=== PATIENT | female | born 1980 | race Caucasian/White ===

== ENCOUNTER 2017-05-01 06:44 | Day surgery (SDC) | payer BC ==
[2017-04-29 14:34] VITALS: BMI 21.6
[~2017-05-01 06:44] MED LIST: BUPIVACAINE HCL/PF 0.5% (5MG/ML) 10 ML VIAL IJ ONE
[2017-05-01] MEDS ORDERED: LIDOCAINE HCL/PF 2% SDV 5ML VIAL ONE (07:17)
[2017-05-01] MEDS ORDERED: PROPOFOL 20 ML ONE ×2 (07:17→11:10)
[2017-05-01] MEDS ORDERED: DEXAMETHASONE SOD PHOSPHATE 4 MG/1 ML VIAL ONE (07:17)
[2017-05-01] MEDS ORDERED: SUCCINYLCHOLINE CHLORIDE 200 MG/10 ML VIAL ONE (07:17)
[2017-05-01] MEDS ORDERED: ceFAZolin SODIUM 1 GM VIAL ONE (07:17)
[2017-05-01] MEDS ORDERED: ONDANSETRON 4 MG/2 ML VIAL ONE (07:17)
[2017-05-01] MEDS ORDERED: MIDAZOLAM HCL 2 MG/2 ML SINGLE DOSE VIAL ONE (07:20)
[2017-05-01] MEDS ORDERED: ROCURONIUM BROMIDE 50 MG/5 ML VIAL ONE ×2 (08:31→09:27)
[2017-05-01] MEDS ORDERED: ceFAZolin SODIUM 1 GM VIAL IVPB ONE (08:38)
[2017-05-01] MEDS ORDERED: BUPIVACAINE HCL/PF 0.5% (5MG/ML) 10 ML VIAL ONE (08:56)
[2017-05-01] MEDS ORDERED: ONDANSETRON 4 MG/2 ML VIAL IVPUSH PRN (08:59)
[2017-05-01] MEDS ORDERED: ACETAMINOPHEN 1000 MG/100 ML VIAL (NON FORMULARY) IVPB PRN (09:00)
[2017-05-01] MEDS ORDERED: LACTATED RINGERS SOLUTION 1,000 ML IV SCH (09:00)
[2017-05-01] MEDS ORDERED: HYDROmorphone HCL/PF 1 MG/ML VIAL (FOR PYXIS CHARGING ONLY) ONE ×4 (09:00→09:47)
--- NOTE | 2017-05-01 11:59 | OP ---
Operative Note - Note: Operative Date: 05/01/17 Pre-Operative Diagnosis: Left Breast Deformity after Lumpectomy & Radiation for Breast Cancer Operation: Left Breast Reconstruction for Lumpectomy Defect, Right. Breast Mastopexy for Symmetry Post-Operative Diagnosis: Same as Pre-op Surgeon: Jonathan Paulino Anesthesia: General Estimated Blood Loss (mls): 100 Operative Report Dictated: Yes
[2017-05-01] MEDS ORDERED: oxyCODONE HCL 5 MG TABLET PO PRN (12:00)
[2017-05-01 12:36] VITALS: TEMP 98.5
--- NOTE | 2017-05-01 12:51 | OP ---
DATE OF OPERATION: 05/01/2017 PREOPERATIVE DIAGNOSIS: Left breast deformity after lumpectomy and radiation for breast cancer. POSTOPERATIVE DIAGNOSIS: Left breast deformity after lumpectomy and radiation for breast cancer. PROCEDURE PERFORMED: Left breast reconstruction for lumpectomy defect and right breast mastopexy for symmetry. SURGEON: Jonathan Dorantes MD ANESTHESIA: General via endotracheal tube. BRIEF HISTORY: The patient is a 36-year-old female who is approximately 1 year status post left breast lumpectomy in the upper outer quadrant (2 o'clock position), which was followed by radiation. The patient then presents with a hollow defect in the area of her lumpectomy, and a modest asymmetry in both breasts after radiation. The patient now presents for reconstruction of the left breast to correct the lumpectomy deformity and a contralateral symmetry procedure. DESCRIPTION OF PROCEDURE: The patient was on the operating table in supine position, and general anesthesia was administered by the anesthesiologist. The area of the chest was prepped and draped in the usual sterile fashion. The patient had been seen one day prior to surgery and was photographed and marked in the standing position. These markings were now used as a guide for surgery. The left breast was approached first, and using the previously placed markings, a Stuart pattern incision was placed. Lateral flaps were developed and kept thick to ensure vascularity at the tip. The lumpectomy region was dissected, and a large cyst was noted representing probable seroma in the area of the previous surgery. This area was completely excised including the rivera of the cystic cavity and sent as separate specimen. The central area was deepithelialized, and dissection continued superiorly, allowing upward rotation of the nipple areolar complex. Hemostasis was achieved with electrocautery, and 2-0 silk sutures were used to inset pearson points. A similar procedure was performed on the right breast. After moving the patient to the sitting position to confirm symmetry of nipple height and their shape, the patient was returned to the supine position for closure. Prior to closure on the left breast, tissue was rearranged in the upper outer quadrant in the area of the lumpectomy defect to improve contour in this area. Closure was then performed on both sides using 3-0 and 4-0 Biosyn suture in interrupted buried fashion, and deep dermal layers of 4-0 V-Loc 90 sutures were used for skin closure. The wounds were further secured with Steri-Strips, and sterile dressings were placed and secured with a surgical bra. The patient was then awoken from anesthesia without any difficulty and taken from the operating room to the recovery room in satisfactory condition having tolerated the procedure well. JONATHAN DORANTES M.D. [id number]
[2017-05-01] MEDS ORDERED: DEXAMETHASONE SOD PHOSPHATE 4 MG/1 ML VIAL IVPUSH ONE (13:43)
[2017-05-01 16:50] VITALS: BP 121/73; PULSE 63
--- NOTE | 2017-05-02 10:53 | SURG ---
Surgery Manager Universal Note Manager Universal: Kianna Corado PA-C Date of Service: 05/01/17 Diagnosis: Left Breast Deformity after Lumpectomy & Radiation for Breast Cancer Procedure: Left Breast Reconstruction for Lumpectomy Defect, Right Breast Mastopexy for Symmetry I was present for the entirety of the operative procedure. For further detail, please refer to operative report. Visit type - Case Type Case Type: Scheduled Admission
--- NOTE | 2017-05-02 12:29 | PATH ---
Surgical Pathology Report Patient Name: YOANA ALMANZAR [facility]. Rec. #: [id number] /Age/Gender: 1980 (Age: 36) / F Account: [id number] Location: [facility] SURGICAL Taken: 05/01/2017 Received: 05/01/2017 Reported: 05/02/2017 Physicians: Jonathan Paulino M.D. Specimen(s) Received A: SKIN LEFT BREAST & TISSUE LEFT BREAST B: SKIN RIGHT BREAST C: LEFT BREAST SUPERIOR, SUSPECTED OLD LUMPECTOMY SITE Clinical History History of breast cancer Left breast deformity after lumpectomy and radiation Final Diagnosis A. SKIN AND BREAST TISSUE, LEFT BREAST, EXCISION: BENIGN BREAST TISSUE WITH FIBROCYSTIC CHANGE. BENIGN SKIN. B. SKIN, RIGHT BREAST, EXCISION: BENIGN SKIN. C. BREAST, LEFT, SUPERIOR, SUSPECTED OLD LUMPECTOMY SITE, EXCISION: BENIGN BREAST TISSUE WITH FIBROCYSTIC CHANGES INCLUDING FOCI OF ADENOSIS, DUCT DILATATION AND STROMAL FIBROSIS. EXTENSIVE CHANGES CONSISTENT WITH PRIOR SURGICAL SITE PRESENT. Electronically Signed Daniel Wolf M.D. Gross Description A. Received in formalin labeled "skin left breast and tissue" is a 35 g, 8.5 x 5.0 x 2.0 cm aggregate of multiple stringer-yellow, irregular, unoriented portions of fibroadipose tissue and stringer, unremarkable skin. Sectioning reveals foci of white fibrous tissue. No definitive masses are identified. Caustic Pump Operator sections are submitted in 2 cassettes. B. Received in formalin labeled "skin right breast" are 2 stringer, irregular, unoriented skin shaves measuring 5.8 x 2.5 cm and 9.5 x 5.4 cm. The epidermal surfaces are unremarkable. Caustic Pump Operator sections are submitted in one cassette. C. Received in formalin labeled "left breast superior suspected old lumpectomy site" are 2 stringer-yellow, irregular, unoriented portions of fibroadipose tissue measuring 1.5 x 1.0 x 0.5 cm and 2.8 x 2.5 x 1.3 cm. There are no needle localization wires present and no skin present. Sectioning reveals a probable previous biopsy cavity within the larger specimen. There are 6 bah metallic clips identified within the larger specimen. Both specimens display abundant dense, white fibrous tissue. No definitive masses are identified. The specimens are entirely submitted in 8 cassettes as follows: [id number] and sequentially submitted smaller specimen; [id number] and sequentially submitted larger specimen. Time to fixation: not indicated Total formalin fixation time: ~ 8h 05/01/201705/01/2017
== END 2017-05-01 15:05 | disposition home or self-care (01) ==
LOC: JASU-SURG 06:44
PROVIDERS: ATTEND Plastic Surgery
PROC: 0HQT0ZZ Repair Right Breast, Open Approach (ICD-10-PCS; 2017-05-01)
PROC: 0HRV07Z Replacement of Bilateral Breast with Autologous Tissue Substitute, Open Approach (ICD-10-PCS; principal; 2017-05-01 08:00)
DX: N65.0 Deformity of reconstructed breast (principal); N65.1 Disproportion of reconstructed breast; Z92.3 Personal history of irradiation; Z98.890 Other specified postprocedural states
CPT/HCPCS: 84703; 88304-TC; 88305-TC; 94760